=== PATIENT | female | born 1970 | race Caucasian/White ===

== ENCOUNTER 2016-11-10 20:29 | Emergency (ER) | payer BC ==
--- NOTE | ~2016-11-10 | CR63 ---
[facility]. [facility] A Service of [facility] & [facility] RADIOLOGY TEXT RESULTS PATIENT: TOBIAS COLON LOCATION: SED : 68 UNIT #: [id number] AGE: [address]: MARIO CHAUHAN SEX: F ORDER DR: [id number] [place] [id number] MR#: [id number] Acc #: [id number] NAME: TOBIAS COLON : 1970 SEX: F STUDY DATE/TIME: 11/10/2016 20:51 UNIT: SED ROOM: STUDY DESCRIPTION: CR Chest 2 View Attending Physician: Mario Chauhan Aprn Ordering Physician: Mario Chauhan Aprn Primary Care Physician: Mario Buck M.D. MEDICAL IMAGING REPORT This report is preliminary unless electronic signature is present. EXAM Chest PA and lateral, 11/10/2016 HISTORY Cough, chest congestion and sore throat for 1 week. Smoking history for over 20 years. FINDINGS PA and lateral examination of the chest upright shows a good expansion of the parenchyma with a normal distribution of the pulmonary vascularity. There is no indication of congestion, effusion, infiltrate, tumor, or nodular density. The pleural reflections and diaphragmatic contours are normal. The cardiac silhouette and mediastinal anatomy is within normal limits. IMPRESSION Normal chest. Dictated by... Allan Santos M.D. THIS IS AN ELECTRONICALLY VERIFIED REPORT Allan Santos M.D. at 11/11/2016 10:47 AM KEI/beau TD: 11/11/2016 08:37 JOB #: [id number] MEDICAL IMAGING REPORT Page 1 of 1
[~2016-11-10 20:29] MED LIST: ACETAMINOPHEN PO; ATIVAN PO; BACTRIM DS TABL1 TA1 PO; BACTRIM DS TABL1 TAB PO; CHOLESTEROL; CIPRO250 MG PO; DICLOFENAC PO; DOXYCYCLINE HY100 M1 PO; FLOMAX0.4 M1 PO; HORMONE PO; IBUPROFEN PO; ILOTYCIN OPTHALMIC OP; KEFLEX PO; LASIX PO; LORTAB 7.5-5001 TAB PO; MACROBID 100 M100 MG PO; MIGRAINE MED; MOTRIN600 MG PO; NAPROSYN500 MG PO; NICOTINE TRANSD21 MG EXT; NO MEDICATIONS; PAXIL; PERCOCET 5-3251 TAB PO; PHENERGAN PO; PHENERGAN25 MG PO; PREMARIN PO; PRILOSEC20 M1 PO; PYRIDIUM PO; PYRIDIUM100 MG PO; REFLUX MED; TUSSIN15 MG/5 M1 PO; ULTRAM PO; VICODIN 5/500 T1 TAB PO; VITAMIN B122500 MC1; VITAMIN D400 UNI2; VOLTAREN75 MG PO; ZITHROMAX1 G/PKT PO; [UNRECOGNIZED DRUG - REMARK]
== END 2016-11-10 21:25 | disposition home or self-care (01) ==
LOC: SED 20:29
DX: R05 Cough (principal); K21.9 Gastro-esophageal reflux disease without esophagitis; E16.2 Hypoglycemia, unspecified; F17.210 Nicotine dependence, cigarettes, uncomplicated; Z90.49 Acquired absence of other specified parts of digestive tract; Z88.2 Allergy status to sulfonamides; Z88.5 Allergy status to narcotic agent; Z88.8 Allergy status to other drugs, medicaments and biological substances
CPT/HCPCS: 71020; 87651; 94640; 99283